=== PATIENT | male | born 1945 | race Caucasian/White ===

== ENCOUNTER → 2021-02-24 | Outpatient (CLI) | payer MEDICARE, OTHER ==
[~2021-02-24] MED LIST: ACET325T38 PO; ALPR0.5T7 PO; ASPI-999 PO; BENZ200C51 PO; BUME1TAB8 PO; BUPR-168 PO; BUSP10TA95 PO; CETI10TA17 PO; CHOL500050 PO; CLIN60LO7 TP; CYCL10TA9 PO; DESV100T16 PO; DILT60TA PO; DOCU100C37 PO; FL.025O15 TP; GABA-486 PO; LEVA1.2521 IH; LEVO50CA4 PO; LOSA50TA63 PO; METF-397 PO; NA S OP; NEBI5TAB8 PO; NITR1PAT62 TD; OMEP40CA6 PO; POTA-51 PO; RT-ALBUINH INH; TADA5TAB3 PO; TEST200V21 IM; TIOT4MIS3 IH; TMSL.4C PO
== END ==
LOC: ORTHO 09:27
PROVIDERS: ATTEND Orthopaedic Surgery
DX: M65.332 Trigger finger, left middle finger (principal); M65.342 Trigger finger, left ring finger
CPT/HCPCS: 99203

== ENCOUNTER 2021-02-28 05:32 | Outpatient (CLI) | payer MEDICARE, OTHER ==
[~2021-02-28] VITALS: Ht 175.3 cm; Wt 114.0 kg
[2021-02-28] MEDS ORDERED: CHOL500050 PO (13:14)
[2021-02-28] MEDS ORDERED: LEVA1.2521 IH (13:14)
[2021-02-28] MEDS ORDERED: BUPR-168 PO (13:14)
[2021-02-28] MEDS ORDERED: TIOT4MIS3 IH (13:14)
[2021-02-28] MEDS ORDERED: LOSA50TA63 PO (13:14)
[2021-02-28] MEDS ORDERED: ACET325T38 PO (13:14)
[2021-02-28] MEDS ORDERED: TEST200V21 IM (13:14)
[2021-02-28] MEDS ORDERED: ASPI-999 PO (13:14)
[2021-02-28] MEDS ORDERED: CETI10TA17 PO (13:14)
[2021-02-28] MEDS ORDERED: TMSL.4C PO (13:14)
[2021-02-28] MEDS ORDERED: CYCL10TA9 PO (13:14)
[2021-02-28] MEDS ORDERED: BENZ200C51 PO (13:14)
[2021-02-28] MEDS ORDERED: CLIN60LO7 TP (13:14)
[2021-02-28] MEDS ORDERED: DESV100T16 PO (13:14)
[2021-02-28] MEDS ORDERED: TADA5TAB3 PO (13:14)
[2021-02-28] MEDS ORDERED: LEVO50CA4 PO (13:14)
[2021-02-28] MEDS ORDERED: POTA-51 PO (13:14)
[2021-02-28] MEDS ORDERED: GABA-486 PO (13:14)
[2021-02-28] MEDS ORDERED: NEBI5TAB8 PO (13:14)
[2021-02-28] MEDS ORDERED: FL.025O15 TP (13:14)
[2021-02-28] MEDS ORDERED: RT-ALBUINH INH (13:14)
[2021-02-28] MEDS ORDERED: NITR1PAT62 TD (13:14)
[2021-02-28] MEDS ORDERED: BUSP10TA95 PO (13:14)
[2021-02-28] MEDS ORDERED: DILT60TA PO (13:14)
[2021-02-28] MEDS ORDERED: DOCU100C37 PO (13:14)
[2021-02-28] MEDS ORDERED: METF-397 PO (13:14)
[2021-02-28] MEDS ORDERED: BUME1TAB8 PO (13:14)
[2021-02-28] MEDS ORDERED: NA S OP (13:14)
[2021-02-28] MEDS ORDERED: ALPR0.5T7 PO (13:14)
[2021-02-28] MEDS ORDERED: OMEP40CA6 PO (13:14)
== END 2021-02-28 13:37 | disposition home or self-care (01) ==
LOC: PREOP 05:32
PROVIDERS: ATTEND Orthopaedic Surgery
DX: Z01.818 Encounter for other preprocedural examination (principal)
CPT/HCPCS: 87081

== ENCOUNTER 2021-03-07 06:06 | Day surgery (SDC) | payer MEDICARE, OTHER ==
[~2021-03-07] VITALS: Ht 175 cm; Wt 114.0 kg
[2021-03-07] VITALS (8 sets, daily range): BP systolic 128–146; BP diastolic 73–85
[2021-03-07] MEDS ORDERED: LACTATED RINGERS 1,000 ML IV PRN (06:30)
[2021-03-07] MEDS ORDERED: LIDOCAINE PF 2% 5 ML (XYLOCAINE) VIAL ONE (06:51)
[2021-03-07] MEDS ORDERED: proPOfol 200 MG/20 ML (DIPRIVAN) VIAL IV ONE (06:51)
[2021-03-07] MEDS ORDERED: MIDAZOLAM 2 MG/2 ML (VERSED) VIAL ONE ×2 (06:51→06:56)
[2021-03-07] MEDS ORDERED: SERT25TA PO (06:54)
[2021-03-07] MEDS ORDERED: fentaNYL INJ 100 MCG/2 ML AMP ONE (06:58)
[2021-03-07] MEDS ORDERED: MIDAZOLAM 2 MG/2 ML (VERSED) VIAL IVP ONE (07:00)
[2021-03-07] MEDS ORDERED: BUPIVACAINE 0.25% 30 ML (SENSORCAINE) VIAL ONE (07:06)
[2021-03-07] MEDS ORDERED: LIDOCAINE 1% INJ 20 ML 20 ML VIAL ONE (07:06)
[2021-03-07] MEDS ORDERED: NEO/POLY/BAC (NEOSPORIN) OINT 15 GM TUBE ONE (07:07)
[2021-03-07] MEDS ORDERED: VANCOMYCIN 1000 MG/VIAL ONE (07:26)
[2021-03-07] MEDS ORDERED: NS IV 500 ML 500 ML ONE ×2 (07:27→07:31)
[2021-03-07] MEDS ORDERED: KETAMINE SYRINGE 50 MG/5 ML SYRINGE ONE (07:30)
[2021-03-07] MEDS ORDERED: KETAMINE HCL 100 MG/ML 5 ML VIAL ONE (07:30)
--- NOTE | 2021-03-07 08:14 | Operative Report - Ortho ---
Operative Report Surgeon (s)/Conche Operator (s) Surgeon CHAPINCITO SANTANA MD [place] Operator n/a Pre-Operative Diagnosis LEFT MIDDLE AND RING TRIGGER FINGERS Post-Operative Diagnosis same Operative Report Date of Procedure: Mar 07, 2021 Name of Procedure Performed: Release of Left Middle and Ring Trigger Fingers Description & Findings After obtaining informed consent and marking the patient in the preoperative holding area, the patient was taken to the operating room; did receive IV antibiotics and sedation was administered. Surgical timeout was taken. Surgical sites were cleaned with alcohol. Injected subcutaneously with lidocaine. Left upper extremity was prepped and draped in the usual sterile fashion. Attention was initially turned to the middle finger, incision was made over the A1 nuha and blunt dissection was carried down to the nuha. Beginning distally and working proximally, the nuha was released. Finger was put through motion and demonstrated no catching. The tendon appeared healthy. Attention was then turned to the ring finger, incision was made over the A1 p ulley and blunt dissection was carried down to the nuha. Beginning distally and working proximally, the nuha was released. Finger was put through motion and demonstrated no catching. The tendon appeared healthy. Wounds were lavaged with normal saline. Skin was repaired with 4-0 nylon. Wounds were dressed with antibiotic ointment, xeroform, 4x4s, laila, webril, and DEIDRA wrap. Patient tolerated the procedure well and was stable to the recovery room. Anesthesia Type Sedation plus local Estimated Blood Loss minimal Specimen(s) collected/removed None CHAPINCITO SANTANA MD Mar 07, 2021 08:14
[2021-03-07] MEDS ORDERED: ONDANSETRON 4 MG/2 ML (SDV) Z0FRAN IVP PRN (08:30)
--- NOTE | 2021-03-07 13:04 | Anesthesia-General Post-Op ---
MAC Patient Condition Mental Status/LOC: Same as Preop Cardiovascular: Satisfactory Nausea/Vomiting: Absent Respiratory: Satisfactory Pain: Controlled Complications: Absent Post Op Complications Complications None Follow Up Care/Instructions Patient Instructions None needed. Anesthesiology Discharge Order Discharge Order Patient is doing well, no complaints, stable vital signs, no apparent adverse anesthesia problems. No complications reported per nursing. LAURA BUCKNER CRNA Mar 07, 2021 13:04
== END 2021-03-07 09:50 | disposition home or self-care (01) ==
LOC: SDC 06:06
PROVIDERS: ATTEND Orthopaedic Surgery
DX: M65.342 Trigger finger, left ring finger (principal); M65.332 Trigger finger, left middle finger; I25.10 Atherosclerotic heart disease of native coronary artery without angina pectoris; I10 Essential (primary) hypertension; I25.2 Old myocardial infarction; J44.9 Chronic obstructive pulmonary disease, unspecified; K21.9 Gastro-esophageal reflux disease without esophagitis; E11.9 Type 2 diabetes mellitus without complications; E78.00 Pure hypercholesterolemia, unspecified; E07.9 Disorder of thyroid, unspecified; E66.01 Morbid (severe) obesity due to excess calories; M19.90 Unspecified osteoarthritis, unspecified site; G47.30 Sleep apnea, unspecified; F32.9 Major depressive disorder, single episode, unspecified; Z68.37 Body mass index [BMI] 37.0-37.9, adult; Z79.890 Hormone replacement therapy; Z87.891 Personal history of nicotine dependence; Z79.899 Other long term (current) drug therapy; Z79.82 Long term (current) use of aspirin; Z85.118 Personal history of other malignant neoplasm of bronchus and lung; Z79.84 Long term (current) use of oral hypoglycemic drugs; Z86.73 Personal history of transient ischemic attack (TIA), and cerebral infarction without residual deficits; Z80.3 Family history of malignant neoplasm of breast; Z80.42 Family history of malignant neoplasm of prostate
CPT/HCPCS: 82947

== ENCOUNTER → 2021-03-22 | Outpatient (CLI) | payer MEDICARE, OTHER ==
[~2021-03-22] MED LIST changes: +SERT25TA PO
== END ==
LOC: ORTHO 09:15
PROVIDERS: ATTEND Orthopaedic Surgery
DX: Z47.89 Encounter for other orthopedic aftercare (principal)

== ENCOUNTER → 2021-05-03 | Outpatient (CLI) | payer MEDICARE, OTHER ==
[~2021-05-03] MED LIST changes: +CYCL10TA25 PO; -CYCL10TA9 PO; -TADA5TAB3 PO; +TADA5TAB4 PO
== END ==
LOC: ORTHO 09:57
PROVIDERS: ATTEND Orthopaedic Surgery
DX: Z47.89 Encounter for other orthopedic aftercare (principal); Z98.890 Other specified postprocedural states